=== PATIENT | male | born 1990 | race Caucasian/White ===

== ENCOUNTER 2021-09-14 18:10 | Emergency (ER) | payer OTHER | END 2021-09-14 20:22 | disposition home or self-care (01) | LOC: ER1 18:10 | DX: S61.215A Laceration without foreign body of left ring finger without damage to nail, initial encounter (principal); F17.290 Nicotine dependence, other tobacco product, uncomplicated; Z23 Encounter for immunization; W45.8XXA Other foreign body or object entering through skin, initial encounter | CPT/HCPCS: 12002; 73130; 90471; 90715; 99283 ==

== ENCOUNTER 2022-02-02 18:21 | Emergency (ER) | payer OTHER ==
[2022-02-02] MEDS ORDERED: CYCLOBENZAPRINE10 MG PO (20:20)
== END 2022-02-02 20:50 | disposition home or self-care (01) ==
LOC: ER1 18:21
DX: S16.1XXA Strain of muscle, fascia and tendon at neck level, initial encounter (principal); F17.290 Nicotine dependence, other tobacco product, uncomplicated; V89.2XXA Person injured in unspecified motor-vehicle accident, traffic, initial encounter
CPT/HCPCS: 99283